=== PATIENT | male | born 1995 | race Asian ===

== ENCOUNTER 2021-04-07 09:16 | Emergency (ER) | payer OTHER ==
[~2021-04-07] VITALS: Ht 160 cm; Wt 63.5 kg
[2021-04-07 09:20] VITALS: BP_SYST 147
[2021-04-07] MEDS ORDERED: VALA500T PO (09:47)
[2021-04-07] MEDS ORDERED: PRED20TA PO (09:47)
[2021-04-07] MEDS: predniSONE 20 MG TABLET PO ONE (09:58)
[2021-04-07] MEDS: valACYclovir HCL 500 MG TABLET PO ONE (09:58)
[2021-04-07 10:07] VITALS: BP_SYST 118
[2021-04-07] MEDS ORDERED: LACEYEO OP (10:20)
== END 2021-04-07 10:07 | disposition home or self-care (01) ==
LOC: SED 09:16
DX: G51.0 Bell's palsy (principal); Z79.899 Other long term (current) drug therapy
CPT/HCPCS: 99283; J7512